=== PATIENT | female | born 1960 | race Caucasian/White ===

== ENCOUNTER → 2020-09-26 | Outpatient (CLI) | payer OTHER ==
[~2020-09-26] MED LIST: IBUPROFEN600 MG PO; VISTARIL25 MG PO
== END ==
LOC: KOH-I 08:53
DX: M79.672 Pain in left foot (principal); M21.42 Flat foot [pes planus] (acquired), left foot; M77.8 Other enthesopathies, not elsewhere classified
CPT/HCPCS: 73610; 73630; 73650

== ENCOUNTER → 2020-10-06 | Outpatient (CLI) | payer OTHER | LOC: EMI 08:00 | DX: M89.8X7 Other specified disorders of bone, ankle and foot (principal); S86.392A Other injury of muscle(s) and tendon(s) of peroneal muscle group at lower leg level, left leg, initial encounter; R60.0 Localized edema | CPT/HCPCS: 73721 ==

== ENCOUNTER → 2020-11-28 | Outpatient (CLI) | payer OTHER | LOC: EXRD 15:09 | DX: Z01.818 Encounter for other preprocedural examination (principal) | CPT/HCPCS: 93926 ==

== ENCOUNTER 2022-02-25 11:27 | Observation (INO) | payer OTHER ==
[~2022-02-25] VITALS: Ht 162.6 cm; Wt 113.4 kg
[2022-02-25 13:09] LABS: HEMOGLOBIN 15.2 gm/dl (12.3-15.3); RED BLOOD COUNT 5.15 M/UL (4.00-5.10); WHITE BLOOD COUNT 8.1 K/UL (4.5-11.0)
[2022-02-25 13:43] LABS: BUN/CREATININE RATIO 25 (0-10)
[2022-02-25] MEDS ORDERED: ZOLPIDEM TARTRA10 MG PO (18:36)
[2022-02-25] MEDS ORDERED: ROXICODONE5 MG PO (18:37)
[2022-02-25] MEDS ORDERED: HYDROCODON-ACE1 EAC2 PO (18:37)
[2022-02-25] MEDS ORDERED: ESOMEPRAZOLE MA40 MG PO (18:38)
[2022-02-25] MEDS ORDERED: LISINOPRIL20 MG PO (18:38)
[2022-02-25] MEDS ORDERED: METOPROLOL TART50 MG PO (18:38)
[2022-02-25] MEDS ORDERED: ROBAXIN 750 MG750 MG PO (18:38)
[2022-02-25] MEDS ORDERED: ZOCOR40 MG PO (18:38)
[2022-02-25] MEDS ORDERED: ASPIRIN EC81 MG PO (18:39)
[2022-02-25] MEDS ORDERED: HYDROCHLOROTHIA25 MG PO (18:39)
[2022-02-26 04:11] LABS: HEMOGLOBIN 14.8 gm/dl (12.3-15.3); RED BLOOD COUNT 5.11 M/UL (4.00-5.10)
[2022-02-26 04:51] LABS: BUN/CREATININE RATIO 22 (0-10)
== END 2022-02-26 13:49 | disposition home or self-care (01) ==
LOC: ER1 11:27 → CDU 17:45 → MED SURG 4 17:45
PROVIDERS: Family Medicine; Physician Assistant Medical; ADMIT Surgery
DX: K85.90 Acute pancreatitis without necrosis or infection, unspecified (principal); Z88.2 Allergy status to sulfonamides; Z79.899 Other long term (current) drug therapy
CPT/HCPCS: 76705; 80053; 81001; 82550; 82553; 83690; 84484; 85025; 85027; 93005; 96374; 96375; 96376; 99285; C9113; G0378; J2270; J2405; Q9967

== ENCOUNTER → 2022-03-11 | Outpatient (CLI) | payer OTHER ==
[~2022-03-11] MED LIST changes: +ASPIRIN EC81 MG PO; +DICLOFENAC; +ESOMEPRAZOLE MA40 MG PO; +HYDROCHLOROTHIA25 MG PO; +HYDROCODON-ACE1 EAC2 PO; +HYDROCODON-ACE1 EAC4 PO; +LISINOPRIL20 MG PO; +METOPROLOL TART50 MG PO; +ROBAXIN 750 MG750 MG PO; +ROXICODONE5 MG PO; +ZOCOR40 MG PO; +ZOLPIDEM TARTRA10 MG PO
[2022-03-11 14:02] LABS: BUN/CREATININE RATIO 34 (0-10)
== END ==
LOC: OPSV2 12:30
PROVIDERS: Surgery
DX: Z01.818 Encounter for other preprocedural examination (principal)
CPT/HCPCS: 36415; 80048; 93005

== ENCOUNTER → 2022-03-12 | Day surgery (SDC) | payer OTHER | END | disposition home or self-care (01) | LOC: OR 07:31 | DX: K85.10 Biliary acute pancreatitis without necrosis or infection (principal); K80.10 Calculus of gallbladder with chronic cholecystitis without obstruction; I10 Essential (primary) hypertension; E78.5 Hyperlipidemia, unspecified; K21.9 Gastro-esophageal reflux disease without esophagitis; I25.10 Atherosclerotic heart disease of native coronary artery without angina pectoris; F41.9 Anxiety disorder, unspecified; F32.A Depression, unspecified; E66.01 Morbid (severe) obesity due to excess calories; Z68.41 Body mass index [BMI] 40.0-44.9, adult; Z79.82 Long term (current) use of aspirin; Z79.899 Other long term (current) drug therapy; Z88.1 Allergy status to other antibiotic agents; Z88.5 Allergy status to narcotic agent | CPT/HCPCS: J0690; J1100; J2250; J2405; J2704; J2710; J3010 ==

== ENCOUNTER 2022-05-13 02:36 | Emergency (ER) | payer OTHER ==
[2022-05-17] MEDS ORDERED: BENTYL 20MG TAB20 MG PO (00:04)
[2022-05-17] MEDS ORDERED: ZOFRAN ODT 4 MG4 MG PO (00:04)
== END 2022-05-13 02:41 | disposition left against medical advice (07) ==
LOC: ER1 02:36
DX: Z53.21 Procedure and treatment not carried out due to patient leaving prior to being seen by health care provider (principal)

== ENCOUNTER → 2022-05-16 | Emergency (ER) | payer OTHER ==
[~2022-05-16] MED LIST changes: +BENTYL 20MG TAB20 MG PO; +ZOFRAN ODT 4 MG4 MG PO
[2022-05-16 20:20] LABS: HEMOGLOBIN 15.7 gm/dl (12.3-15.3); RED BLOOD COUNT 5.27 M/UL (4.00-5.10); WHITE BLOOD COUNT 10.4 K/UL (4.5-11.0)
[2022-05-16 20:38] LABS: BUN/CREATININE RATIO 24 (0-10)
== END | disposition home or self-care (01) ==
LOC: ER1 19:18
PROVIDERS: Physician Assistant
DX: R10.10 Upper abdominal pain, unspecified (principal); I10 Essential (primary) hypertension; E78.5 Hyperlipidemia, unspecified
CPT/HCPCS: 80053; 81001; 82150; 83690; 85025; 99284; Q9967

== ENCOUNTER 2022-05-24 15:24 | Emergency (ER) | payer OTHER ==
[2022-05-24 16:39] LABS: HEMOGLOBIN 15.1 gm/dl (12.3-15.3); RED BLOOD COUNT 5.1 M/UL (4.00-5.10); WHITE BLOOD COUNT 8.7 K/UL (4.5-11.0)
[2022-05-24 17:21] LABS: BUN/CREATININE RATIO 18 (0-10)
== END 2022-05-24 20:51 | disposition home or self-care (01) ==
LOC: ER1 15:24
PROVIDERS: Student in an Organized Health Care Education/Training Program
DX: M54.9 Dorsalgia, unspecified (principal); Z86.39 Personal history of other endocrine, nutritional and metabolic disease; Z90.49 Acquired absence of other specified parts of digestive tract; Z88.1 Allergy status to other antibiotic agents
CPT/HCPCS: 71045; 80053; 81001; 82550; 82553; 84484; 85025; 93005; 99284